=== PATIENT | female | born 1970 | race African-American/Black ===

== ENCOUNTER 2017-05-12 06:41 | Inpatient (IN) ==
[2017-05-12] MEDS ORDERED: ALUM/MAG/SIMETH/LIDO VISC 1:1 30 ML BOTTLE PO STA (07:01)
[2017-05-12] MEDS ORDERED: ALUM/MAG/SIMETH/LIDO VISC 1:1 30 ML BOTTLE PO ONE (07:06)
[2017-05-12 07:21] LABS: Basophils % 0.4 % (0.0-0.8); Eosinophils # 0.1 10*3/uL (0.0-0.87); Eosinophils % 1.1 % (0.00-10.9); Hematocrit 37.4 VOL% (35.7-47.0); Hemoglobin 12.5 GM/DL (12.0-16.0); Immature Granulocytes % 0.3 %; Immature Granulocytes Absolute 0.02 #; Lymphocytes # 2.5 10*3/uL (1.4-4.0); Lymphocytes % 34.4 % (21.3-54.2); Mean Corpuscular HGB Conc 33.4 GM/DL (32-36); Mean Corpuscular Hemoglobin 32 PG (27-34); Mean Corpuscular Volume 96.6 FL (87-102); Mean Platelet Volume 9.9 FL (9.6-12.0); Monocytes # 0.5 10*3/uL (0.11-0.8); Monocytes % 6.3 % (1.7-12.7); Neutrophils # 4.2 10*3/uL (1.4-7.4); Neutrophils % 57.5 % (38.7-73.9); Platelet Count 219 T/CUMM (130-400); Red Blood Count 3.87 MC/CUMM (3.8-5.5); Red Cell Distribution Width 14.2 % (9.3-17.3); White Blood Count 7.4 T/CUMM (4-12)
--- NOTE | 2017-05-12 07:39 | EKG Report ---
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
[2017-05-12 07:47] LABS: Albumin 3.4 G/DL (3.4-5.0); Bilirubin,Total 0.9 MG/DL (0.2-1.0); Calcium 8.8 MG/DL (8.5-10.1); Magnesium 1.9 MG/DL (1.8-2.4); Osmolality,Calculated 271.7 MOS/KG (273-304); Potassium 3.2 MMOL/L (3.5-5.1); Total Protein 7.8 G/DL (6.4-8.3)
--- NOTE | 2017-05-12 08:19 | XRay Report ---
XR chest 2V Indication: Chest pain Comparison: None Technique: Frontal and lateral views of the chest. Findings: Heart size within normal limits. No focal consolidation, pleural effusion, or pneumothorax. Moderate dextroconvex curvature of the thoracic spine. IMPRESSION: No acute cardiopulmonary process demonstrated. PROCEDURE INTERPRETED AT [facility] DEPARTMENT OF RADIOLOGY Final Report Signed by: Dr Dmitri Cha
[2017-05-12] MEDS ORDERED: ASPIRIN 325 MG TABLET PO STA (08:44)
[2017-05-12] MEDS ORDERED: ENOXAPARIN 100 MG/ML SYRINGE SUBCUT STA (08:44)
[2017-05-12] MEDS ORDERED: NITROGLYCERIN SL 0.4 MG TABLET SL PRN (08:44)
[2017-05-12] MEDS ORDERED: ENOXAPARIN 80 MG/0.8 ML SYRINGE SUBCUT ONE (08:53)
[2017-05-12] MEDS ORDERED: ASPIRIN 325 MG TABLET ONE (08:53)
--- NOTE | 2017-05-12 09:05 | Emergency Department Note ---
Chepe Rocha Brittany, am scribing for, and in the presence of, Elliott Farah MD 07:11. Sofi Rocha Phillip K, MD, personally performed the services described in this documentation, ascribed by Khushboo Mo in my presence, and it is both accurate and complete 905 . Arrival - Arrival Chief Complaint: Chest Pain Stated Complaint: chest hurting ED Nursing Triage Note: c/o chest pain "across" chest which started yesterday. pt states that pain does not radiate. denies nausea or sob. denies any past medical hx. pt reports that she is a smoker and drink vodka on a daily basis Mode of Arrival: Ambulatory Limitations: No Limitations Source: Patient, RN Notes Reviewed - History of Present Illness HPI Narrative: Patient is a 46 y/o black female presenting to the ED with c/o mid-sternal chest pain described as a tightness upon lying flat that began yesterday. Patient denies having any worsening of pain upon taking a deep breath or radiation of pain into the neck or arm. She has not had any SOB, nausea, vomiting, or diaphoresis with this. Patient states that a day prior to onset of chest pain she was jumping on a trampoline and believes this may have contributed. Patient was at rest when chest pain initially onset. She denies history of cardiac problems or GERD. Patient does have history of Hiatal Hernia. Does not take any daily home medications. Current everyday cigarette smoker and EtOH user. Patient has no other complaints. Patient's pain is improved with sitting up and leaning forward. Allergies/Adverse Reactions: Allergies Allergy/AdvReac Type Severity Reaction Status Date / Time No Known Allergies Allergy Unverified 05/12/17 06:48 Home Medications: Home Medications Medication Instructions Recorded Confirmed Type No Known Home Medications [No 05/12/17 05/12/17 History Known Home Medications] Review of System - Review of System 12 point system: reviewed and no additional remarkable complaints except as stated - Review of System Constitutional: Absent: diaphoresis Respiratory: Absent: respiratory distress Cardiovascular: Present: chest pain Gastrointestinal: Absent: nausea, vomiting Musculoskeletal: Absent: arm pain, neck pain Medical,Surgical,& Family Hx - Medical History Gastrointestinal: History of: GI Problems (Hiatal Hernia) - Surgical History Surgical History: noncontributory - Family History Family History: noncontributory - Social History Smoking Status: Current every day smoker Frequency of Alcohol Use: Frequently Type of Drug Use: None Exam Vital Signs: Vital Signs Temperature 97.1 F L 05/12/17 06:48 Pulse Rate 64 05/12/17 06:48 Respiratory Rate 18 05/12/17 07:31 Blood Pressure 133/87 05/12/17 06:48 O2 Sat by Pulse Oximetry 100 05/12/17 06:48 - General General appearance: alert, in no apparent distress - Head Head exam: Present: atraumatic, normocephalic, normal inspection - Eye Eye exam: Present: normal appearance, PERRL, EOMI - ENT ENT exam: Present: normal exam, normal oropharynx - Neck Neck exam: Present: normal inspection, full ROM, trachea midline - Chest Chest inspection: Present: normal inspection, symmetric chest wall rise - Respiratory Respiratory exam: Present: normal lung sounds bilaterally - Cardiovascular Cardiovascular exam: Present: regular rate, normal rhythm, normal heart sounds - Abdominal Exam Abdominal exam: Present: soft, normal bowel sounds. Absent: tenderness - Extremities Exam Extremities exam: Present: normal inspection - Back Exam Back exam: Present: normal inspection - Neurological Exam Neurological exam: Present: alert, oriented X3, CN II-XII intact. Absent: motor sensory deficit - Psychiatric Psychiatric exam: Present: normal affect, normal mood - Skin Skin exam: Present: warm, dry Course Course Narrative: Patient had no relief with a GI cocktail. Results - Labs CBC & BMP: 05/12/17 07:05 05/12/17 07:05 Lab Results: I have reviewed the patients labs Labs: Laboratory Tests 05/12/17 07:05 WBC 7.4 RBC 3.87 Hgb 12.5 Hct 37.4 Plt Count 219 Laboratory Tests 05/12/17 07:05 Sodium 138 Potassium 3.2 L Chloride 106 Carbon Dioxide 24 BUN 5 L Creatinine 0.90 BUN/Creatinine Ratio 5.00 L Glucose 94 Calculated Osmolality 271.7 L AST 14 ALT 12 L Globulin 4.4 H Albumin/Globulin Ratio 0.7 L Laboratory Tests 05/12/17 07:05 Troponin I 0.670 H - EKG EKG results: interpreted by ERMBernardino, sinus rhythm (Nonspecific ST-T changes) - Diagnostic Findings Procedure: Chest x-ray: report reviewed by me (No acute cardiopulmonary process demonstrated.) Disposition Clinical Impression: Chest pain, Possible unstable angina, Possible pericarditis, Tobacco abuse, Alcohol abuse Case discussed with: patient Disposition: Still a Patient Condition: Guarded Additional Instructions: Admit to the hospitalist.
--- NOTE | 2017-05-12 09:40 | Hospitalist History & Physical ---
Assessment and Plan (1) Chest pain Status: Acute Assessment and plan: Admit to telemetry. Cardiac monitoring. Serial cardiac enzymes and serial EKGs. Consult cardiology to evaluate. CBC/BMP in am. TSH. UA. Current Visit: Yes (2) Hypokalemia Status: Acute Assessment and plan: Potassium replacement. Recheck in am. Current Visit: Yes (3) Alcohol abuse Status: Acute Current Visit: Yes (4) Tobacco abuse Status: Acute Current Visit: Yes History of Present Illness Chief complaint: chest pain History of present illness: Ms. Otero is a 46 year old black female with a history of only a hiatal hernia that presents to the ED for further evaluation of chest pain. Pt. is accompanied by her significant other. Pt. states that the pain began yesterday morning before work and persisted throughout the day. She describes the pain as a pressure across the middle of her chest. She denies any radiation of pain into the jaw, neck, or arm area. Pt. also denies any shortness of breath, nausea , vomiting, fever, chills, diaphoresis or abdominal pain. Pt. states that the pain may be related to her jumping on a trampoline on Wednesday but is unsure. Pt. reports being a everyday smoker and drinker. She does not take any medications. She denies any other issues in the ED at this time. CXR was negative for any acute process but patient's troponin was 0.670. Pt. will be admitted to the hospitalist service overnight for observation. Home Medications Medication Instructions Recorded Confirmed Type No Known Home Medications [No 05/12/17 05/12/17 History Known Home Medications] Allergies Allergy/AdvReac Type Severity Reaction Status Date / Time No Known Allergies Allergy Unverified 05/12/17 06:48 Medical,Surgical,& Family Hx - Medical History Gastrointestinal: History of: GI Problems (Hiatal Hernia) - Social History Smoking Status: Current every day smoker Frequency of Alcohol Use: Frequently (every day) Type of Drug Use: None Lives With:: Significant Other Functional capacity: independent ambulation - Constitutional Constitutional: Absent: chills, fever(s), weakness - EENT Eyes: Absent: blurry vision, requires corrective lense Ears: Absent: decreased hearing Nose, mouth and throat: Absent: headache(s), hoarseness - Cardiovascular Cardiovascular: Present: chest pain at rest, chest pain with activity. Absent: dyspnea on exertion, edema, radiating jaw, neck or arm pain - Respiratory Respiratory: Absent: cough, dyspnea - Gastrointestinal Gastrointestinal: Absent: abdominal pain, nausea, vomiting - Genitourinary Genitourinary: Absent: difficulty urinating, hematuria, urinary frequency, urinary hesitancy - Musculoskeletal Musculoskeletal: Absent: back pain - Neurological Neurological: Absent: confusion, dizziness, headache(s) - Psychiatric Psychiatric: Absent: anxiety, depression Exam - Constitutional Vitals: Period Temp Pulse Resp BP Sys/Flores Pulse Ox Last 24 Hr 97.1 F-97.1 F 58-67 16-20 109-133/72-87 98-100 General appearance: no acute distress, over weight - Head Head exam: Present: normal inspection, normocephalic - Eye Eye exam: Present: EOMI. Absent: scleral icterus Pupils: Present: YANIRA - Neck Neck exam: Present: normal inspection - Respiratory Respiratory exam: Present: clear to auscultation bilaterally. Absent: wheezes - Cardiovascular Cardiovascular exam: Present: regular rate and rhythm - GI/Abdominal GI/Abdominal exam: Present: normal bowel sounds, soft. Absent: tenderness - Extremities Exam Extremities exam: Present: normal capillary refill, full ROM. Absent: edema - Neurological Exam Neurological exam: Present: alert, oriented X3 - Psychiatric Psychiatric exam: Present: normal affect, normal mood - Skin Skin exam: Present: normal color, warm, dry Results - Labs CBC & BMP: 05/12/17 07:05 05/12/17 07:05 Lab Results: I have reviewed the past 24 hour labs
[2017-05-12] MEDS ORDERED: ACETAMINOPHEN 325 MG TABLET PO PRN (10:04)
[2017-05-12] MEDS ORDERED: NICOTINE 21 MG/24 HR PATCH TRANSDERM PRN (10:04)
[2017-05-12] MEDS ORDERED: ONDANSETRON 4 MG/2 ML VIAL IV PRN (10:04)
[2017-05-12] MEDS: SODIUM CHLORIDE 0.9% 1,000 ML IV SCH (10:27)
[2017-05-12] MEDS: PANTOPRAZOLE 40 MG TABLET PO SCH (10:27)
[2017-05-12] MEDS: POTASSIUM CHLORIDE 20 MEQ TABLET PO PRN (10:37)
--- NOTE | 2017-05-12 11:16 | Cardiology Consult Note ---
Assessment and Plan - Time spent with patient Time spent with patient: Greater than 30 minutes (1) Atypical chest pain Status: Acute Assessment and plan: SEE PLAN OF CARE LISTED BELOW. Current Visit: Yes (2) Palpitations Status: Acute Assessment and plan: SEE PLAN OF CARE LISTED BELOW. Current Visit: Yes (3) Alcohol abuse Status: Chronic Assessment and plan: SEE PLAN OF CARE LISTED BELOW. Current Visit: Yes (4) Hypokalemia Status: Acute Assessment and plan: SEE PLAN OF CARE LISTED BELOW. Current Visit: Yes (5) Tobacco abuse Status: Chronic Assessment and plan: SEE PLAN OF CARE LISTED BELOW. Current Visit: Yes History of Present Illness - Data of Consult Patient: new to practice Consult date: 05/12/17 Requesting Physician: Hannah Eng - Consult Narrative Reason for consult: Chest pain, elevated troponin History of present illness: Title Assistant: Jack to cardiology, Dr. stack PCP: None Ms. Otero is a 46 year old female without known history of coronary artery disease, not routinely followed by cardiology. She has cardiac risk factors significant for current everyday smoker and obesity. She denies significant family history of coronary artery disease. She reports that she smokes close to 1 pack per day and drinks alcohol frequently. She does not take any home medications. Does not report any past medical history. She does not have a primary care provider. She has never been been worked up by cardiology. Patient reported to [place] [facility] early this morning with complaints of chest pain. She reports that her chest discomfort began yesterday morning while getting ready for work. She describes this pain as a pressure type pain located midsternally. This does not radiate. She is unable to identify any alleviating or aggravating factors. She reports that this lasted approximately 20 minutes. Was not associated with nausea, shortness of breath or diaphoresis. When she arrived at work, her chest pain was relieved. She was able to work all day without any problems. When she arrived back home she felt her chest discomfort return. She reports feeling her heart fluttering at times. Later that afternoon, her chest pain did worsen when she would lie flat. It would get better when she would lean forward. She tells me that she felt that her chest pain was related to gas. She burped several times, this did make her chest pain better. She went on to bed yesterday evening. When she awoke this morning and she reports that she continued to have mild chest discomfort. At that time, she felt that she needed to be further evaluated in the emergency department. Patient does report that she jumped on the trampoline at a friend's house earlier this week. She did not experience any chest pain, heaviness or tightness at that time. However, she feels that this has possibly caused her chest pain in some way.Upon arrival to the emergency department, she was given nitroglycerin which she reports did help her chest pain slightly. It did not completely resolve it. Patient has been admitted under hospital medicine's service and housed on the telemetry unit. Cardiology has been consulted to further evaluate her chest discomfort. Of note, patient reports that she is active. She can perform her daily activities without ever experiencing chest pain, heaviness and tightness. She denies exertional chest discomfort, dyspnea on exertion or change in her exercise tolerance. She also denies fever, chills, cough, abdominal pain, nausea, vomiting, melena, hematochezia, orthopnea, PND and lower extremity swelling. Patient was seen and examined on the telemetry unit. She is currently without complaints of chest pain, heaviness and tightness. Upon examination, her chest pain is not reproducible. Cardiac biomarkers are trivial, flat in nature. EKG is abnormal, suggestive for possible early repolarization. ESR is elevated. This could possibly be pericarditis. Echocardiogram has been ordered. Will order CRP. Patient's chest pain is atypical. I will ensure PPI is on board. I have discussed this case with Dr. Graham. At this point, we will continue to cycle cardiac biomarkers as well as EKGs. Order echocardiogram. If changes in EKG or significant rise in troponin can consider possible heart catheterization. Aspirin ordered. We will add PPI. Continue sublingual nitroglycerin as needed. Heart rate will not tolerate initiation of beta blockade. Lipid panel in the morning. Further recommendations to follow per Dr. Graham. ASSESSMENT/PLAN 1. ATYPICAL CHEST PAIN - Patient presents with atypical chest pain. Now chest pain-free. ESR elevated. This could possibly be pericarditis. Echocardiogram will be obtained. Will order CRP. Cardiac biomarkers trivial, flat in nature. EKG is abnormal, suggestive for possible early repolarization. I have discussed with Dr. Graham. At this point, we will continue to cycle cardiac biomarkers as well as EKGs. Order echocardiogram. If changes in EKG or significant rise in troponin can consider possible heart catheterization. Aspirin ordered. We will add PPI. Continue sublingual nitroglycerin as needed. Heart rate will not tolerate initiation of beta blockade. Lipid panel in the morning. Further recommendations to follow per Dr. Graham. 2. CURRENT EVERYDAY SMOKER - Smoking cessation encouraged. Patient reports that she is going to attempt to quit after being discharged. 3. ELEVATED ESR - Will order echocardiogram as patient could have pericarditis. Will order CRP. She is afebrile. Normal white cell count. 4. PALPITATIONS- Patient does report sensation of her heart fluttering yesterday afternoon. There could be possibly an underlying arrhythmia. Will monitor patient on the telemetry unit. Can consider 30 day event monitor at discharge. 5. HYPOKALEMIA - Will replace per protocol. Daily BMP. CC: Christiano Santos III - Home Medications and Allergies Home Medications: Home Medications Medication Instructions Recorded Confirmed Type No Known Home Medications [No 05/12/17 05/12/17 History Known Home Medications] Allergies/Adverse Reactions: Allergies Allergy/AdvReac Type Severity Reaction Status Date / Time No Known Allergies Allergy Unverified 05/12/17 06:48 - Constitutional Constitutional: Present: as per HPI. Absent: chills, fatigue, fever(s), frequent falls, night sweats, weakness, weight gain, weight loss - Cardiovascular Cardiovascular: Present: as per HPI, chest pain at rest, palpitations. Absent: chest pain with activity, claudication, diaphoresis, dyspnea, dyspnea on exertion, edema, radiating jaw, neck or arm pain, lightheadedness, orthopnea, PND - Respiratory Respiratory: Present: as per HPI. Absent: dyspnea, hemoptysis, dyspnea on exertion, wheezing, snoring, pain on inspiration, change in phlegm color - Gastrointestinal Gastrointestinal: Present: as per HPI. Absent: abdominal pain, change in bowel habits, coffee ground emesis, heartburn, hematemesis, hematochezia, loose stools , melena, nausea, vomiting - Neurological Neurological: Present: as per HPI. Absent: abnormal gait, abnormal speech, behavioral changes, dizziness, syncope Medical,Surgical,& Family Hx - Medical History Gastrointestinal: History of: GI Problems (Hiatal Hernia) - Family History Family History: Denies;: Family Heart Disease - Social History Smoking Status: Current every day smoker Frequency of Alcohol Use: Frequently Type of Drug Use: None Marital Status: Single Lives With:: Alone Functional capacity: independent ambulation Physical Examination Vital Signs Temp Pulse Resp BP Pulse Ox 97.1 F L 64 20 133/87 100 05/12/17 06:48 05/12/17 06:48 05/12/17 06:48 05/12/17 06:48 05/12/17 06:48 Exam: General: Appears well with no apparent distress. Pleasant and cooperative. Appears comfortable. HEENT: PERRL, normocephalic, atraumatic. Mucous membranes moist. No jaundice noted. Conjunctiva moist and clear, sclerae anicteric Neck: No JVD/HJR, no thyromegaly or lymphadenopathy noted. No carotid bruit appreciated Cardiac: Regular rate and rhythm. Lungs: Clear to auscultation without accessory muscle use to assist the respiratory pattern. Not requiring oxygen. Abdomen: Soft, bowel sounds normoactive. Nontender and nondistended. No abdominal bruit or thrill noted. No masses noted. Extremities: No clubbing, cyanosis noted. No edema noted. Upper extremity pulses 2+. Lower extremity pulses 2+. Capillary refill less than 3 seconds. Skin: No unusual lesions or rashes. No skin breakdown appreciated. Neuro: Awake, alert and oriented 3. Moves all extremities well without hemiparesis or paralysis. No essential tremor is appreciated. Result/EKG - Labs CBC & BMP: 05/12/17 07:05 05/12/17 07:05 Lab Results: I have reviewed the past 24 hour labs Labs: Laboratory Results - last 24 hr 05/12/17 05/12/17 05/12/17 07:05 07:05 07:05 WBC 7.4 RBC 3.87 Hgb 12.5 Hct 37.4 MCV 96.6 MCH 32 MCHC 33.4 RDW 14.2 Plt Count 219 MPV 9.9 Neut % (Auto) 57.5 Lymph % (Auto) 34.4 [place] % (Auto) 6.3 Eos % (Auto) 1.1 Baso % (Auto) 0.4 Neut # (Auto) 4.2 Lymph # (Auto) 2.5 [place] # (Auto) 0.5 Eos # (Auto) 0.1 Baso # (Auto) 0.0 Immature Gran % 0.3 Nucleated RBC % 0.0 Immature Gran # 0.02 Nucleated RBCs # 0.00 Immature Plt Fraction 0.0 ESR Westergren Sodium 138 Potassium 3.2 L Chloride 106 Carbon Dioxide 24 Anion Gap 11.2 BUN 5 L Creatinine 0.90 GFR Calculation 87 BUN/Creatinine Ratio 5.00 L Glucose 94 Calculated Osmolality 271.7 L Calcium 8.8 Magnesium 1.9 Total Bilirubin 0.90 AST 14 ALT 12 L Alkaline Phosphatase 83 Troponin I 0.670 H Total Protein 7.8 Albumin 3.4 Globulin 4.4 H Albumin/Globulin Ratio 0.7 L Lipase 240.0 05/12/17 05/12/17 07:05 10:17 WBC RBC Hgb Hct MCV MCH MCHC RDW Plt Count MPV Neut % (Auto) Lymph % (Auto) [place] % (Auto) Eos % (Auto) Baso % (Auto) Neut # (Auto) Lymph # (Auto) [place] # (Auto) Eos # (Auto) Baso # (Auto) Immature Gran % Nucleated RBC % Immature Gran # Nucleated RBCs # Immature Plt Fraction ESR Westergren 48 H Sodium Potassium Chloride Carbon Dioxide Anion Gap BUN Creatinine GFR Calculation BUN/Creatinine Ratio Glucose Calculated Osmolality Calcium Magnesium Total Bilirubin AST ALT Alkaline Phosphatase Troponin I 0.708 H Total Protein Albumin Globulin Albumin/Globulin Ratio Lipase
[2017-05-12] MEDS ORDERED: MAGNESIUM SULF RIDER 1 GM in PREMIX 1 EACH IV ONE ×2 (11:49→17:00)
--- NOTE | 2017-05-12 12:04 | EKG Report ---
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
[2017-05-12] MEDS ORDERED: ENOXAPARIN 40 MG/0.4 ML SYRINGE SUBCUT SCH (12:30)
[2017-05-12] MEDS: POTASSIUM CHLORIDE 20 MEQ TABLET PO SCH ×2 (12:32→16:10)
--- NOTE | 2017-05-12 14:18 | EKG Report ---
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
--- NOTE | 2017-05-12 21:49 | ECHO Report ---
Carmen Otero Exam Date: 05/12/2017 13:26 Referring Physician: Technologist: Regla Masters RDCS Age: 46 Ht (in): 61 Wt (lb): 164 Gender: F Exam Location: [facility] Echo Indications: Chest pain, unspecified, Elevated troponin, Palpitations, Nicotine dependence, cigarettes, uncomplicated BP: 118 / 63 HR: 64 Rhythm: Sinus Technical Quality: Good IMPRESSIONS Left ventricular ejection fraction is estimated at 60 %. The right atrium is mildly enlarged. The left atrium is mildly enlarged. Trace to mild tricuspid valve regurgitation. Tricuspid regurgitation velocities suggest a PAP of 37 mmHg. MEASUREMENTS (Male / Female) Normal Values 2D ECHO LV Diastolic Diameter PLAX 3.7 cm 4.2 - 5.9 / 3.9 - 5.3 cm LV Systolic Diameter PLAX 2.5 cm LV Fractional Shortening PLAX 34.2 % IVS Diastolic Thickness 0.9 cm 0.6 - 1.0 / 0.6 - 0.9 cm LVPW Diastolic Thickness 0.9 cm 0.6 - 1.0 / 0.6 - 0.9 cm RV Internal Dim ED PLAX 3.3 cm Aortic Root Diameter 2.2 cm LA Systolic Diameter LX 3.7 cm 3.0 - 4.0 / 2.7 - 3.8 cm DOPPLER TR Peak Velocity 258.0 cm/s TR Peak Gradient 26.6 mmHg FINDINGS Left Ventricle Normal left ventricular cavity size. Normal left ventricular wall thickness. Left ventricular ejection fraction is estimated at 60 %. Right Ventricle The right ventricle is normal in size and function. Right Atrium The right atrium is mildly enlarged. Left Atrium The left atrium is mildly enlarged. Mitral Valve Morphologically normal mitral valve without significant stenosis or prolapse. There is no mitral regurgitation. Aortic Valve Morphologically normal aortic valve without significant sclerosis or stenosis. There is no aortic regurgitation. Tricuspid Valve Morphologically normal tricuspid valve. Trace to mild tricuspid valve regurgitation. Tricuspid regurgitation velocities suggest a PAP of 37 mmHg. Pulmonic Valve Morphologically normal pulmonic valve. Mild pulmonary valve regurgitation. Pericardium Normal pericardium without effusion. Aorta Normal ascending aorta dimension. Cody Graham MD (Electronically Signed) Final Date: 12 May 2017 21:48
[2017-05-12] MEDS: SERTRALINE 25 MG TABLET PO SCH (21:57)
[2017-05-12] MEDS: GABAPENTIN 100 MG CAPSULE PO SCH ×2 (21:58)
[2017-05-12] MEDS: ACETAMINOPHEN 325 MG TABLET PO SCH ×2 (21:58)
[2017-05-12 23:26] LABS: Apearance,Urine Slightly Hazy (Clear); Bacteria,Urine Occasional /HPF (Few); Bilirubin,Urine Negative (Negative); Blood, Urine Negative (Negative); Glucose,Urine (UA) Negative (Negative); Ketones,Urine Negative (Negative); Mucus,Urine Occasional /LPF (Occasional); Nitrite,Urine Negative (Negative); Protein,Urine Negative; RBC,Urine 1 /HPF (0-4); Squamous Epithelial Cell,Urine Occasional /HPF (0-10); Urine Color Yellow (Yellow); Urine Specific Gravity 1.011 (1.001-1.035); Urine Urobilinogen < 2.0 EU/DL (0.2-1.0); WBC,Urine 2 /HPF (0-6)
[2017-05-13] MEDS: SODIUM CHLORIDE 0.9% 1,000 ML IV SCH ×3 (01:12→12:48)
[2017-05-13 05:28] LABS: Basophils % 0.4 % (0.0-0.8); Eosinophils # 0.1 10*3/uL (0.0-0.87); Eosinophils % 1.1 % (0.00-10.9); Hematocrit 33.8 VOL% (35.7-47.0); Hemoglobin 11.2 GM/DL (12.0-16.0); Immature Granulocytes % 0.4 %; Immature Granulocytes Absolute 0.03 #; Lymphocytes # 3.2 10*3/uL (1.4-4.0); Lymphocytes % 43.1 % (21.3-54.2); Mean Corpuscular HGB Conc 33.1 GM/DL (32-36); Mean Corpuscular Hemoglobin 33 PG (27-34); Mean Corpuscular Volume 98.3 FL (87-102); Mean Platelet Volume 9.9 FL (9.6-12.0); Monocytes # 0.5 10*3/uL (0.11-0.8); Monocytes % 6.2 % (1.7-12.7); Neutrophils # 3.6 10*3/uL (1.4-7.4); Neutrophils % 48.8 % (38.7-73.9); Platelet Count 201 T/CUMM (130-400); Red Blood Count 3.44 MC/CUMM (3.8-5.5); Red Cell Distribution Width 14.3 % (9.3-17.3); White Blood Count 7.3 T/CUMM (4-12)
[2017-05-13 06:00] LABS: Free T4 (Free Thyroxine) 0.93 NG/DL (0.76-1.46)
[2017-05-13 06:01] LABS: Troponin I Only 2.21 NG/ML (0.00-0.045)
[2017-05-13 06:05] LABS: Calcium 8.2 MG/DL (8.5-10.1); Magnesium 2.4 MG/DL (1.8-2.4); Osmolality,Calculated 274.4 MOS/KG (273-304); Potassium 4.3 MMOL/L (3.5-5.1)
[2017-05-13 06:18] LABS: Risk Ratio 2.75; Thyroid Stimulating Hormone 1.03 uIU/ml (0.358-3.74); VLDL CHOLESTEROL 12.6 MG/DL
--- NOTE | 2017-05-13 07:23 | EKG Report ---
Stationary ECG Study 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
--- NOTE | 2017-05-13 07:54 | Cardiology Progress Note ---
<Jewell Brito - Last Filed: 05/13/17 07:44> Assessment and Plan (1) Atypical chest pain Status: Acute Assessment and plan: SEE PLAN OF CARE LISTED BELOW. Current Visit: Yes (2) Palpitations Status: Acute Assessment and plan: SEE PLAN OF CARE LISTED BELOW. Current Visit: Yes (3) Alcohol abuse Status: Chronic Assessment and plan: SEE PLAN OF CARE LISTED BELOW. Current Visit: Yes (4) Hypokalemia Status: Acute Assessment and plan: SEE PLAN OF CARE LISTED BELOW. Current Visit: Yes (5) Tobacco abuse Status: Resolved Assessment and plan: SEE PLAN OF CARE LISTED BELOW. Current Visit: Yes Cardiology - PN: Subj Interval history: Microfiche Duplicator: New to cardiology, Dr. stack PCP: None Ms. Otero is a 46 year old female without known history of coronary artery disease, not routinely followed by cardiology. She has cardiac risk factors significant for current everyday smoker and obesity. She denies significant family history of coronary artery disease. She reports that she smokes close to 1 pack per day and drinks alcohol frequently. She does not take any home medications. Does not report any past medical history. She does not have a primary care provider. She has never been been worked up by cardiology. Patient reported to [facility] early this morning with complaints of chest pain. Admitted for rule out WA. Cardiology was consulted to further evaluate. Echocardiogram was performed yesterday evening and revealed normal systolic function, ejection fraction 60%. Trace to mild TR. Pulmonary artery pressure 37 mmHg. MAY 13, 2017 UPDATE Patient was seen and examined on the telemetry unit. She is doing well this morning and reports that she feels much better. She has had no further chest pain, heaviness or tightness. Denies shortness of breath. However, her troponin evette overnight to 2.21. EKG has changed as well, reveals T-wave inversions in inferior leads, suggesting inferior ischemia. Patient has been kept n.p.o. after midnight. At this point, I feel that patient should undergo heart catheterization in order to rule out underlying coronary artery disease. Risk and benefits of procedure have been reviewed with the patient and her significant other. They are agreeable to proceed. Cath will be scheduled for this morning per Dr. Malik. She denies any allergies. Lipid panel reviewed and is overall unremarkable. Vital signs are stable overnight. Labs been reviewed. I will further discuss with Dr. stack await his additional recommendations. ASSESSMENT/PLAN 1. ATYPICAL CHEST PAIN -patient is chest pain-free. However, overnight her troponin evette to 2.21. EKG this morning reveals T-wave inversions in inferior leads, suggesting inferior ischemia. Possible non-ST elevation WA. At this point, patient will need heart catheterization in order to define her coronary anatomy. Risk and benefits of heart catheterization have been reviewed with the patient and her significant other. They are agreeable to proceed with this this morning. Patient has been n.p.o. after midnight. Will further discuss with Dr. stack await his additional recommendations. 2. CURRENT EVERYDAY SMOKER - Smoking cessation encouraged. Patient reports that she is going to attempt to quit after being discharged. 3. ELEVATED ESR - No evidence of pericarditis per echocardiogram. Afebrile. No leukocytosis. 4. PALPITATIONS- No evidence of arrhythmia noted on sock drier. Can consider 30 day event monitor at discharge. 5. HYPOKALEMIA - Resolved. Daily BMP. Exam (Progress Note) - Constitutional Vitals: Period Temp Pulse Resp BP Sys/Flores Pulse Ox Last 24 Hr 97.8 F-98.6 F 54-93 16-18 109-133/63-84 98-100 Exam: General: Appears well with no apparent distress. Pleasant and cooperative. Appears comfortable. HEENT: PERRL, normocephalic, atraumatic. Mucous membranes moist. No jaundice noted. Conjunctiva moist and clear, sclerae anicteric Neck: No JVD/HJR, no thyromegaly or lymphadenopathy noted. No carotid bruit appreciated Cardiac: Regular rate and rhythm. Lungs: Clear to auscultation without accessory muscle use to assist the respiratory pattern. Not requiring oxygen. Abdomen: Soft, bowel sounds normoactive. Nontender and nondistended. No abdominal bruit or thrill noted. No masses noted. Extremities: No clubbing, cyanosis noted. No edema noted. Upper extremity pulses 2+. Lower extremity pulses 2+. Capillary refill less than 3 seconds. Skin: No unusual lesions or rashes. No skin breakdown appreciated. Neuro: Awake, alert and oriented 3. Moves all extremities well without hemiparesis or paralysis. No essential tremor is appreciated. Result/EKG - Labs CBC & BMP: 05/13/17 05:02 05/13/17 05:02 Lab Results: I have reviewed the past 24 hour labs Labs: Laboratory Results - last 24 hr 05/12/17 05/12/17 05/12/17 07:05 07:05 07:05 WBC RBC Hgb Hct MCV MCH MCHC RDW Plt Count MPV Neut % (Auto) Lymph % (Auto) [place] % (Auto) Eos % (Auto) Baso % (Auto) Neut # (Auto) Lymph # (Auto) [place] # (Auto) Eos # (Auto) Baso # (Auto) Immature Gran % Nucleated RBC % Immature Gran # Nucleated RBCs # Immature Plt Fraction ESR Westergren 48 H D-Dimer, Quantitative Sodium 138 Potassium 3.2 L Chloride 106 Carbon Dioxide 24 Anion Gap 11.2 BUN 5 L Creatinine 0.90 GFR Calculation 87 BUN/Creatinine Ratio 5.00 L Glucose 94 Hemoglobin A1c Calculated Osmolality 271.7 L Calcium 8.8 Magnesium 1.9 Total Bilirubin 0.90 AST 14 ALT 12 L Alkaline Phosphatase 83 Total Creatine Kinase CK-MB (CK-2) CK and CKMB Interp Troponin I 0.670 H C-Reactive Protein Total Protein 7.8 Albumin 3.4 Globulin 4.4 H Albumin/Globulin Ratio 0.7 L Triglycerides Cholesterol LDL Cholesterol VLDL Cholesterol HDL Cholesterol Heart Disease Risk Ratio Lipase 240.0 Free T4 TSH 3rd Generation Urine Color Urine Appearance Urine pH Ur Specific Welling Urine Protein Urine Glucose (UA) Urine Ketones Urine Blood Urine Nitrate Urine Bilirubin Urine Urobilinogen Urine Leukocytes Urine RBC Urine WBC Ur Squamous Epith Cells Urine Bacteria Urine Mucus Ur Culture Indicated? 05/12/17 05/12/17 05/12/17 07:05 10:17 11:53 WBC RBC Hgb Hct MCV MCH MCHC RDW Plt Count MPV Neut % (Auto) Lymph % (Auto) [place] % (Auto) Eos % (Auto) Baso % (Auto) Neut # (Auto) Lymph # (Auto) [place] # (Auto) Eos # (Auto) Baso # (Auto) Immature Gran % Nucleated RBC % Immature Gran # Nucleated RBCs # Immature Plt Fraction ESR Westergren D-Dimer, Quantitative Sodium Potassium Chloride Carbon Dioxide Anion Gap BUN Creatinine GFR Calculation BUN/Creatinine Ratio Glucose Hemoglobin A1c Calculated Osmolality Calcium Magnesium Total Bilirubin AST ALT Alkaline Phosphatase Total Creatine Kinase 152 CK-MB (CK-2) 2.9 CK and CKMB Interp Troponin I 0.708 H 1.220 H D C-Reactive Protein Total Protein Albumin Globulin Albumin/Globulin Ratio Triglycerides Cholesterol LDL Cholesterol VLDL Cholesterol HDL Cholesterol Heart Disease Risk Ratio Lipase Free T4 TSH 3rd Generation Urine Color Urine Appearance Urine pH Ur Specific Welling Urine Protein Urine Glucose (UA) Urine Ketones Urine Blood Urine Nitrate Urine Bilirubin Urine Urobilinogen Urine Leukocytes Urine RBC Urine WBC Ur Squamous Epith Cells Urine Bacteria Urine Mucus Ur Culture Indicated? 05/12/17 05/12/17 05/12/17 12:02 13:25 13:25 WBC RBC Hgb Hct MCV MCH MCHC RDW Plt Count MPV Neut % (Auto) Lymph % (Auto) [place] % (Auto) Eos % (Auto) Baso % (Auto) Neut # (Auto) Lymph # (Auto) [place] # (Auto) Eos # (Auto) Baso # (Auto) Immature Gran % Nucleated RBC % Immature Gran # Nucleated RBCs # Immature Plt Fraction ESR Westergren D-Dimer, Quantitative 0.7 Sodium Potassium Chloride Carbon Dioxide Anion Gap BUN Creatinine GFR Calculation BUN/Creatinine Ratio Glucose Hemoglobin A1c Calculated Osmolality Calcium Magnesium Total Bilirubin AST ALT Alkaline Phosphatase Total Creatine Kinase CK-MB (CK-2) CK and CKMB Interp Troponin I 2.130 H D C-Reactive Protein 0.47 H Total Protein Albumin Globulin Albumin/Globulin Ratio Triglycerides Cholesterol LDL Cholesterol VLDL Cholesterol HDL Cholesterol Heart Disease Risk Ratio Lipase Free T4 TSH 3rd Generation Urine Color Urine Appearance Urine pH Ur Specific [place] Urine Protein Urine Glucose (UA) Urine Ketones Urine Blood Urine Nitrate Urine Bilirubin Urine Urobilinogen Urine Leukocytes Urine RBC Urine WBC Ur Squamous Epith Cells Urine Bacteria Urine Mucus Ur Culture Indicated? 05/12/17 05/13/17 05/13/17 22:58 05:02 05:02 WBC 7.3 RBC 3.44 L Hgb 11.2 L Hct 33.8 L MCV 98.3 MCH 33 MCHC 33.1 RDW 14.3 Plt Count 201 MPV 9.9 Neut % (Auto) 48.8 Lymph % (Auto) 43.1 [place] % (Auto) 6.2 Eos % (Auto) 1.1 Baso % (Auto) 0.4 Neut # (Auto) 3.6 Lymph # (Auto) 3.2 [place] # (Auto) 0.5 Eos # (Auto) 0.1 Baso # (Auto) 0.0 Immature Gran % 0.4 Nucleated RBC % 0.0 Immature Gran # 0.03 Nucleated RBCs # 0.00 Immature Plt Fraction 0.0 ESR Westergren D-Dimer, Quantitative Sodium 140 Potassium 4.3 Chloride 112 H Carbon Dioxide 22 Anion Gap 10.3 BUN 4 L Creatinine 0.70 GFR Calculation 121 BUN/Creatinine Ratio 5.00 L Glucose 89 Hemoglobin A1c Calculated Osmolality 274.4 Calcium 8.2 L Magnesium 2.4 Total Bilirubin AST ALT Alkaline Phosphatase Total Creatine Kinase CK-MB (CK-2) CK and CKMB Interp Troponin I C-Reactive Protein Total Protein Albumin Globulin Albumin/Globulin Ratio Triglycerides Cholesterol LDL Cholesterol VLDL Cholesterol HDL Cholesterol Heart Disease Risk Ratio Lipase Free T4 TSH 3rd Generation Urine Color Yellow Urine Appearance Slightly hazy Urine pH 7.0 Ur Specific [place] 1.011 Urine Protein Negative Urine Glucose (UA) Negative Urine Ketones Negative Urine Blood Negative Urine Nitrate Negative Urine Bilirubin Negative Urine Urobilinogen < 2.0 H Urine Leukocytes Negative Urine RBC 1 Urine WBC 2 Ur Squamous Epith Cells Occasional Urine Bacteria Occasional Urine Mucus Occasional Ur Culture Indicated? Not indicated 05/13/17 05/13/17 05/13/17 05:02 05:02 05:02 WBC RBC Hgb Hct MCV MCH MCHC RDW Plt Count MPV Neut % (Auto) Lymph % (Auto) [place] % (Auto) Eos % (Auto) Baso % (Auto) Neut # (Auto) Lymph # (Auto) [place] # (Auto) Eos # (Auto) Baso # (Auto) Immature Gran % Nucleated RBC % Immature Gran # Nucleated RBCs # Immature Plt Fraction ESR Westergren D-Dimer, Quantitative Sodium Potassium Chloride Carbon Dioxide Anion Gap BUN Creatinine GFR Calculation BUN/Creatinine Ratio Glucose Hemoglobin A1c 5.3 Calculated Osmolality Calcium Magnesium Total Bilirubin AST ALT Alkaline Phosphatase Total Creatine Kinase 283 H D CK-MB (CK-2) 5.7 H CK and CKMB Interp 2.0 Troponin I 2.210 H C-Reactive Protein Total Protein Albumin Globulin Albumin/Globulin Ratio Triglycerides 63 Cholesterol 132 LDL Cholesterol 72.0 VLDL Cholesterol 12.6 HDL Cholesterol 48 Heart Disease Risk Ratio 2.75 Lipase Free T4 0.93 TSH 3rd Generation 1.030 Urine Color Urine Appearance Urine pH Ur Specific [place] Urine Protein Urine Glucose (UA) Urine Ketones Urine Blood Urine Nitrate Urine Bilirubin Urine Urobilinogen Urine Leukocytes Urine RBC Urine WBC Ur Squamous Epith Cells Urine Bacteria Urine Mucus Ur Culture Indicated? - EKG EKG results: interpreted by me, sinus rhythm (With T-wave inversions noted in inferior leads) <Cody Graham - Last Filed: 05/13/17 09:39> Assessment and Plan - Time spent with patient Time spent with patient: Greater than 30 minutes (1) Elevated troponin Status: Acute Current Visit: Yes (2) Abnormal EKG Status: Acute Current Visit: Yes (3) Chest pain in adult Status: Acute Current Visit: Yes (4) Smoker Status: Acute Current Visit: Yes (5) Alcohol abuse Status: Chronic Current Visit: Yes Exam (Progress Note) - Constitutional Vitals: Period Temp Pulse Resp BP Sys/Flores Pulse Ox Last 24 Hr 97.8 F-98.6 F 56-93 16-18 103-133/48-76 100-100 Result/EKG - Labs CBC & BMP: 05/13/17 05:02 05/13/17 05:02 Labs: Laboratory Results - last 24 hr 05/12/17 05/12/17 05/12/17 07:05 07:05 10:17 WBC RBC Hgb Hct MCV MCH MCHC RDW Plt Count MPV Neut % (Auto) Lymph % (Auto) [place] % (Auto) Eos % (Auto) Baso % (Auto) Neut # (Auto) Lymph # (Auto) [place] # (Auto) Eos # (Auto) Baso # (Auto) Immature Gran % Nucleated RBC % Immature Gran # Nucleated RBCs # Immature Plt Fraction ESR Westergren 48 H INR PT Patient/Control Mix D-Dimer, Quantitative Sodium Potassium Chloride Carbon Dioxide Anion Gap BUN Creatinine GFR Calculation BUN/Creatinine Ratio Glucose Hemoglobin A1c Calculated Osmolality Calcium Magnesium Total Creatine Kinase 152 CK-MB (CK-2) 2.9 CK and CKMB Interp Troponin I 0.708 H C-Reactive Protein Triglycerides Cholesterol LDL Cholesterol VLDL Cholesterol HDL Cholesterol Heart Disease Risk Ratio Free T4 TSH 3rd Generation Urine Color Urine Appearance Urine pH Ur Specific [place] Urine Protein Urine Glucose (UA) Urine Ketones Urine Blood Urine Nitrate Urine Bilirubin Urine Urobilinogen Urine Leukocytes Urine RBC Urine WBC Ur Squamous Epith Cells Urine Bacteria Urine Mucus Ur Culture Indicated? 05/12/17 05/12/17 05/12/17 11:53 12:02 13:25 WBC RBC Hgb Hct MCV MCH MCHC RDW Plt Count MPV Neut % (Auto) Lymph % (Auto) [place] % (Auto) Eos % (Auto) Baso % (Auto) Neut # (Auto) Lymph # (Auto) [place] # (Auto) Eos # (Auto) Baso # (Auto) Immature Gran % Nucleated RBC % Immature Gran # Nucleated RBCs # Immature Plt Fraction ESR Westergren INR PT Patient/Control Mix D-Dimer, Quantitative Sodium Potassium Chloride Carbon Dioxide Anion Gap BUN Creatinine GFR Calculation BUN/Creatinine Ratio Glucose Hemoglobin A1c Calculated Osmolality Calcium Magnesium Total Creatine Kinase CK-MB (CK-2) CK and CKMB Interp Troponin I 1.220 H D 2.130 H D C-Reactive Protein 0.47 H Triglycerides Cholesterol LDL Cholesterol VLDL Cholesterol HDL Cholesterol Heart Disease Risk Ratio Free T4 TSH 3rd Generation Urine Color Urine Appearance Urine pH Ur Specific [place] Urine Protein Urine Glucose (UA) Urine Ketones Urine Blood Urine Nitrate Urine Bilirubin Urine Urobilinogen Urine Leukocytes Urine RBC Urine WBC Ur Squamous Epith Cells Urine Bacteria Urine Mucus Ur Culture Indicated? 05/12/17 05/12/17 05/13/17 13:25 22:58 05:02 WBC RBC Hgb Hct MCV MCH MCHC RDW Plt Count MPV Neut % (Auto) Lymph % (Auto) [place] % (Auto) Eos % (Auto) Baso % (Auto) Neut # (Auto) Lymph # (Auto) [place] # (Auto) Eos # (Auto) Baso # (Auto) Immature Gran % Nucleated RBC % Immature Gran # Nucleated RBCs # Immature Plt Fraction ESR Westergren INR PT Patient/Control Mix D-Dimer, Quantitative 0.7 Sodium 140 Potassium 4.3 Chloride 112 H Carbon Dioxide 22 Anion Gap 10.3 BUN 4 L Creatinine 0.70 GFR Calculation 121 BUN/Creatinine Ratio 5.00 L Glucose 89 Hemoglobin A1c Calculated Osmolality 274.4 Calcium 8.2 L Magnesium 2.4 Total Creatine Kinase CK-MB (CK-2) CK and CKMB Interp Troponin I C-Reactive Protein Triglycerides Cholesterol LDL Cholesterol VLDL Cholesterol HDL Cholesterol Heart Disease Risk Ratio Free T4 TSH 3rd Generation Urine Color Yellow Urine Appearance Slightly hazy Urine pH 7.0 Ur Specific [place] 1.011 Urine Protein Negative Urine Glucose (UA) Negative Urine Ketones Negative Urine Blood Negative Urine Nitrate Negative Urine Bilirubin Negative Urine Urobilinogen < 2.0 H Urine Leukocytes Negative Urine RBC 1 Urine WBC 2 Ur Squamous Epith Cells Occasional Urine Bacteria Occasional Urine Mucus Occasional Ur Culture Indicated? Not indicated 05/13/17 05/13/17 05/13/17 05:02 05:02 05:02 WBC 7.3 RBC 3.44 L Hgb 11.2 L Hct 33.8 L MCV 98.3 MCH 33 MCHC 33.1 RDW 14.3 Plt Count 201 MPV 9.9 Neut % (Auto) 48.8 Lymph % (Auto) 43.1 [place] % (Auto) 6.2 Eos % (Auto) 1.1 Baso % (Auto) 0.4 Neut # (Auto) 3.6 Lymph # (Auto) 3.2 [place] # (Auto) 0.5 Eos # (Auto) 0.1 Baso # (Auto) 0.0 Immature Gran % 0.4 Nucleated RBC % 0.0 Immature Gran # 0.03 Nucleated RBCs # 0.00 Immature Plt Fraction 0.0 ESR Westergren INR PT Patient/Control Mix D-Dimer, Quantitative Sodium Potassium Chloride Carbon Dioxide Anion Gap BUN Creatinine GFR Calculation BUN/Creatinine Ratio Glucose Hemoglobin A1c Calculated Osmolality Calcium Magnesium Total Creatine Kinase 283 H D CK-MB (CK-2) 5.7 H CK and CKMB Interp 2.0 Troponin I 2.210 H C-Reactive Protein Triglycerides 63 Cholesterol 132 LDL Cholesterol 72.0 VLDL Cholesterol 12.6 HDL Cholesterol 48 Heart Disease Risk Ratio 2.75 Free T4 0.93 TSH 3rd Generation 1.030 Urine Color Urine Appearance Urine pH Ur Specific [place] Urine Protein Urine Glucose (UA) Urine Ketones Urine Blood Urine Nitrate Urine Bilirubin Urine Urobilinogen Urine Leukocytes Urine RBC Urine WBC Ur Squamous Epith Cells Urine Bacteria Urine Mucus Ur Culture Indicated? 05/13/17 05/13/17 05:02 08:58 WBC RBC Hgb Hct MCV MCH MCHC RDW Plt Count MPV Neut % (Auto) Lymph % (Auto) [place] % (Auto) Eos % (Auto) Baso % (Auto) Neut # (Auto) Lymph # (Auto) [place] # (Auto) Eos # (Auto) Baso # (Auto) Immature Gran % Nucleated RBC % Immature Gran # Nucleated RBCs # Immature Plt Fraction ESR Westergren INR 1.0 PT Patient/Control Mix 10.3 D-Dimer, Quantitative Sodium Potassium Chloride Carbon Dioxide Anion Gap BUN Creatinine GFR Calculation BUN/Creatinine Ratio Glucose Hemoglobin A1c 5.3 Calculated Osmolality Calcium Magnesium Total Creatine Kinase CK-MB (CK-2) CK and CKMB Interp Troponin I C-Reactive Protein Triglycerides Cholesterol LDL Cholesterol VLDL Cholesterol HDL Cholesterol Heart Disease Risk Ratio Free T4 TSH 3rd Generation Urine Color Urine Appearance Urine pH Ur Specific [place] Urine Protein Urine Glucose (UA) Urine Ketones Urine Blood Urine Nitrate Urine Bilirubin Urine Urobilinogen Urine Leukocytes Urine RBC Urine WBC Ur Squamous Epith Cells Urine Bacteria Urine Mucus Ur Culture Indicated?
[2017-05-13] MEDS ORDERED: ASPIRIN CHEW 81 MG TABLET PO ONE (08:15)
[2017-05-13] MEDS ORDERED: MAGNESIUM SULF RIDER 2 GM in PREMIX 1 EACH IV PRN (08:27)
[2017-05-13] MEDS ORDERED: POTASSIUM CHLORIDE RIDER 10 MEQ in PREMIX 1 EACH IV PRN (08:27)
[2017-05-13] MEDS ORDERED: DIAZEPAM 5 MG TABLET PO ONE (08:27)
[2017-05-13] MEDS ORDERED: diphenhydrAMINE CAP 25 MG CAPSULE PO ONE (08:27)
[2017-05-13] MEDS ORDERED: SODIUM CHLORIDE 0.45% 1,000 ML IV SCH (08:30)
[2017-05-13] MEDS ORDERED: ASPIRIN EC 81 MG TABLET PO SCH (09:00)
[2017-05-13] MEDS: GABAPENTIN 100 MG CAPSULE PO SCH ×3 (09:02→21:23)
[2017-05-13] MEDS: ACETAMINOPHEN 325 MG TABLET PO SCH ×2 (09:03→21:23)
[2017-05-13] MEDS: PANTOPRAZOLE 40 MG TABLET PO SCH (09:03)
[2017-05-13] MEDS: POTASSIUM CHLORIDE 20 MEQ TABLET PO PRN (09:08)
[2017-05-13] MEDS ORDERED: MIDAZOLAM 2 MG/2 ML VIAL ONE (09:18)
[2017-05-13] MEDS ORDERED: HYDROmorphone 2 MG/1 ML VIAL ONE (09:18)
[2017-05-13 09:20] LABS: PT Patient Result 10.3 SECS
[2017-05-13] MEDS ORDERED: LIDOCAINE 1% 20 ML VIAL ONE (09:20)
[2017-05-13] MEDS ORDERED: ENOXAPARIN 60 MG/0.6 ML SYRINGE ONE (09:39)
[2017-05-13] MEDS ORDERED: TICAGRELOR 90 MG TABLET ONE (09:49)
[2017-05-13] MEDS ORDERED: ZALEPLON 5 MG CAPSULE PO PRN (09:57)
[2017-05-13] MEDS ORDERED: ACETAMINOPHEN/CODEINE 300-30 MG TABLET PO PRN (09:57)
--- NOTE | 2017-05-13 10:07 | Cardiac Catheterization ---
Date of Procedure:: 05/13/17 Post-op diagnosis: same Procedure: Procedure performed: 1. Left heart catheterization 2. Coronary angiography 3. Left ventriculography 4. Primary stenting of significant mid RCA disease with drug-eluting stent ( 3.0 x 16 synergy) 5. Right femoral arteriotomy closure with Angio-Seal device Brief clinical summary: Ms. Otero is a 46-year-old smoker status post non- STEMI with abnormal EKG. Description of procedure: After obtaining informed consent, the right groin was prepped and draped in the usual sterile fashion. Next a short 6 Urdu sheath was placed in the right femoral artery using a modified Seldinger technique, after the patient received IV sedation and local anesthetic. Next a JL4 catheter was advanced over a guidewire under fluoroscopic guidance, and was engaged to the left coronary artery after which angiography was performed in multiple views. This was then removed over a wire, and a JR4 catheter was advanced in similar fashion, and was engaged to the right coronary artery after which angiography was performed in multiple views. Next a bent pigtail catheter was advanced into the left ventricle, where hemodynamic measurements were obtained, and left ventriculography was performed. After this percutaneous coronary mention was performed as described below. After this, an angiogram of the sheath showed that it was inserted in the right common femoral artery in a vessel suitable for closure. Hemostasis was obtained with Angio- Seal device with no residual bleeding. 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 Percutaneous coronary mention: The patient arrived to the [facility] on aspirin and was given 0.7 mg/kg of IV Lovenox prior to procedure. Medially after the procedure she was given a loading dose of Brilinta 180 mg on the table. A hockey-stick to guiding catheter was advanced and engaged the right coronary artery which provided good support. There was modest "damping" of the blood pressure which required some adjustment in re-engagement of the vessel. I advanced a pro-water wire to distal RCA with only modest difficulty. Next a 3.0 x 16 Synergy stent was advanced crosshair of mid disease was deployed at nominal pressures. I did not deflate the balloon and the angiogram showed the stent was slightly undersized. Therefore read dilated to 3.15 mm with an excellent angiographic result. The balloon catheter wire were then removed from the body. Coronary angiography: Left main coronary was normal developed and free of disease. Left anterior CRE is of average caliber reaches the apex. It is somewhat tortuous in the mid to distal portion and is hyperdynamic but there is no stenosis of the vessel. The LAD gives off to thin diagonal branches. The circumflex gives off a high thinner than average OM1 and a large OM 2 branch as well as a thin OM 3 branch. There is a most mild irregularities. The right coronary is a dominant vessel is of average caliber. Gives off an average caliber PDA and there is a discrete 70% mid LAD stenosis which is almost certainly her culprit unstable plaque. Left ventriculography: Left ventricle is normal size with normal LV systolic function. There are no wall motion analysis. The estimated ejection fraction 60%. Impression: 1. Normal LV systolic function with ejection fraction is will be 60% without segmental wall motion normality 2. Right dominant system 3. Single-vessel coronary disease with 70% eccentric mid RCA stenosis (culprit lesion) 4. Status post primary stenting of mid RCA disease with drug-eluting stent ( 3.0 x 16 Synergy dilated to 3.5 mm) with excellent result 5. Mild hypotension which responded to normal saline bolus during the procedure Recommendation discussion: I believe we achieved very good result cart distending this easily's culprit vessel. Her staying away from cigarettes will be very important for her prognosis. She will need to continue baby aspirin and Brilinta. She will need to avoid squatting strain lifting for the next 1 week's time. Anesthesia: minimal conscious sedation Surgeon / Physician: Tal Malik Time Checker: other Estimated blood loss: minimal Specimens: none sent Condition: stable Disposition: floor - Medications / Follow-up
--- NOTE | 2017-05-13 16:04 | Hospitalist Progress Note ---
Assessment and Plan (1) Coronary artery disease Status: Acute Assessment and plan: 05/13/2017: Patient experienced a small non-ST elevation acute myocardial infarction. Culprit lesion stented this morning (ROD) mid RCA. Current Visit: Yes (2) Tobacco use Status: Chronic Assessment and plan: 05/13/2017: Continue to student counsellor and encourage patient to discontinue cigarette smoking Current Visit: Yes (3) Alcohol use Status: Chronic Assessment and plan: 05/13/2017: Patient denies alcoholism. She denies previous acute alcohol withdrawal. Add thiamine and multivitamin supplements. Monitor for acute withdrawal symptoms. Current Visit: Yes (4) Hiatal hernia Status: Chronic Assessment and plan: 05/13/2017: Add antireflux behavior modifications. Continue PPI stress gastritis pharmacologic therapy. Current Visit: Yes Hospitalist: Subjective Interval history: 05/13/2017: Patient is a 46-year-old black female interviewed and examined after left heart catheterization earlier today. Her was at bedside at the time of my interview and exam. Patient denies any specific or acute complaints. I reviewed patient's current status, left heart catheterization report, and planned treatment. Exam - Constitutional Vitals: Period Temp Pulse Resp BP Sys/Flores Pulse Ox Last 24 Hr 97.2 F-98.6 F 57-93 16-18 81-133/48-76 94-100 General appearance: over weight - Head Head exam: Present: normal inspection - ENT ENT exam: Present: normal exam - Neck Neck exam: Absent: meningismus, tenderness - Respiratory Respiratory exam: Present: clear to auscultation bilaterally. Absent: rhonchi, wheezes - Cardiovascular Cardiovascular exam: Present: regular rate and rhythm - GI/Abdominal GI/Abdominal exam: Present: normal bowel sounds, soft. Absent: rebound - Extremities Exam Extremities exam: Present: normal inspection, other (Both feet are warm and well perfused). Absent: calf tenderness, edema - Neurological Exam Neurological exam: Present: other (Somnolent) - Psychiatric Psychiatric exam: Present: normal affect - Skin Skin exam: Present: normal color, warm. Absent: rash Results - Labs CBC & BMP: 05/13/17 05:02 05/13/17 05:02 Specialty Discharge - Follow Up or Referrals
[2017-05-13] MEDS: TICAGRELOR 90 MG TABLET PO SCH (21:22)
[2017-05-13] MEDS: SERTRALINE 25 MG TABLET PO SCH (21:23)
[2017-05-14 05:55] LABS: Basophils % 0.4 % (0.0-0.8); Eosinophils # 0.1 10*3/uL (0.0-0.87); Eosinophils % 0.9 % (0.00-10.9); Hematocrit 33.3 VOL% (35.7-47.0); Hemoglobin 11.1 GM/DL (12.0-16.0); Immature Granulocytes % 0.4 %; Immature Granulocytes Absolute 0.03 #; Lymphocytes # 2.7 10*3/uL (1.4-4.0); Lymphocytes % 36.7 % (21.3-54.2); Mean Corpuscular HGB Conc 33.3 GM/DL (32-36); Mean Corpuscular Hemoglobin 32 PG (27-34); Mean Corpuscular Volume 97.1 FL (87-102); Mean Platelet Volume 10.5 FL (9.6-12.0); Monocytes # 0.4 10*3/uL (0.11-0.8); Monocytes % 5.9 % (1.7-12.7); Neutrophils # 4.1 10*3/uL (1.4-7.4); Neutrophils % 55.7 % (38.7-73.9); Platelet Count 201 T/CUMM (130-400); Red Blood Count 3.43 MC/CUMM (3.8-5.5); Red Cell Distribution Width 14.4 % (9.3-17.3); White Blood Count 7.4 T/CUMM (4-12)
[2017-05-14 06:23] LABS: Calcium 8.3 MG/DL (8.5-10.1); Osmolality,Calculated 272.5 MOS/KG (273-304)
[2017-05-14 06:37] LABS: Calcium 8.4 MG/DL (8.5-10.1); Magnesium 2.1 MG/DL (1.8-2.4); Osmolality,Calculated 270.7 MOS/KG (273-304)
--- NOTE | 2017-05-14 07:26 | EKG Report ---
Stationary ECG Study [facility] Test Date: 05/14/2017 7:24:58 AM Pat Name: BEKA VANEGAS Department: Room: 278 Gender: F [employer] F[employer]: : 1970 Requested by: Jewell Brito Order Number: [id number] Reading MD: ANTHONY BARKSDALE Intervals [place] Rate: 71 P: 87 MI: 145 QRS: 84 QRSD: 94 T: 1 QT: 411 QTc: 433 Interpretive Statements SINUS RHYTHM WITH SINUS ARRHYTHMIA NONSPECIFIC T-WAVE ABNORMALITY Electronically Signed On 05-14-17 13:08:41 CDT by ANTHONY BARKSDALE [email or web address]
--- NOTE | 2017-05-14 08:05 | Cardiology Progress Note ---
Addendum entered and electronically signed by Jewell Brito NP 05/14/17 09:35 : Patient did have elevated ESR and CRP this hospitalization. This could suggest possible underlying inflammatory disease. Patient will need further workup of this. I will defer further management/workup of this to attending. Original Note: Assessment and Plan (1) Atypical chest pain Status: Resolved Assessment and plan: SEE PLAN OF CARE LISTED BELOW. Current Visit: Yes (2) Palpitations Status: Resolved Assessment and plan: SEE PLAN OF CARE LISTED BELOW. Current Visit: Yes (3) Alcohol abuse Status: Chronic Assessment and plan: SEE PLAN OF CARE LISTED BELOW. Current Visit: Yes (4) Hypokalemia Status: Resolved Assessment and plan: SEE PLAN OF CARE LISTED BELOW. Current Visit: Yes (5) Tobacco abuse Status: Chronic Assessment and plan: SEE PLAN OF CARE LISTED BELOW. Current Visit: Yes (6) Coronary artery disease Status: Acute Assessment and plan: SEE PLAN OF CARE LISTED BELOW. Current Visit: Yes (7) Status post coronary artery stent placement Status: Acute Assessment and plan: SEE PLAN OF CARE LISTED BELOW. Current Visit: Yes Cardiology - PN: Subj Interval history: Service Order Clerk: New to cardiology, Dr. stack PCP: None Ms. Otero is a 46 year old female without known history of coronary artery disease, not routinely followed by cardiology. She has cardiac risk factors significant for current everyday smoker and obesity. She denies significant family history of coronary artery disease. She reports that she smokes close to 1 pack per day and drinks alcohol frequently. She does not take any home medications. Does not report any past medical history. She does not have a primary care provider. She has never been been worked up by cardiology. Patient reported to [facility] early this morning with complaints of chest pain. Admitted for rule out OR. Cardiology was consulted to further evaluate. Echocardiogram was performed yesterday evening and revealed normal systolic function, ejection fraction 60%. Trace to mild TR. Pulmonary artery pressure 37 mmHg. Lipid panel obtained this hospitalization. LDL stable at 72. Cholesterol 132 MAY 14, 2017 UPDATE Post heart catheterization patient was transported back to the telemetry unit in stable condition. She has done well overnight has been without complications. Right groin is soft without bleeding, hematoma and bruit. Distal pulses 2+. Patient has ambulated around the room and down the [place] without difficulty. Right groin has remained stable post ambulation. Right groin precautions have been reviewed with the patient. She verbalizes understanding. I have discussed the importance of absolute compliance with dual antiplatelet therapy. She has verbalized understanding. She will be discharged home on both Brilinta and aspirin. Brilinta card given at discharge. She has been without complaint of chest pain, heaviness and tightness. Labs have been reviewed. Creatinine is stable post catheterization. Vital signs are stable. Borderline hypotension noted throughout the night with systolic blood pressure in the 90s. This morning systolic blood pressure in the low 100s. This is patient's baseline. Unfortunately, we are unable to initiate beta-blockade and NORMAN inhibitor because of this. Hopefully, this can be challenged as an outpatient. Patient is doing well from a cardiac standpoint and can be discharged home today with a follow-up appointment with Dr. Graham in 2 weeks with EKG and CBC. I will further discuss with Dr. stack await his additional recommendations. ASSESSMENT/PLAN 1. CORONARY ARTERY DISEASE, STATUS POST PCI TO RCA- Patient underwent heart catheterization yesterday and received PCI to RCA. She has done well and is now on dual antiplatelet therapy. She is stable for discharge home from a cardiac standpoint. She will need follow-up appointment with Dr. Graham in 2 weeks with CBC and EKG. Her echocardiogram she has normal LV systolic function. Recommend the following cardiac discharge medications: Brilinta, aspirin, Lipitor and sublingual nitroglycerin as needed chest pain. Unfortunately, her blood pressure will not allow initiation of NORMAN inhibitor or beta-blockade. Hopefully patient can be challenged with these medications as an outpatient. 2. CURRENT EVERYDAY SMOKER - Smoking cessation encouraged. Patient reports that she is going to attempt to quit after being discharged. 3. HYPOKALEMIA - Resolved. Daily BMP. Recommend the following cardiac discharge medications: Brilinta 90 mg twice daily Aspirin 81 mg daily Lipitor 40 mg daily Nitroglycerin sublingual as needed chest pain Exam (Progress Note) - Constitutional Vitals: Period Temp Pulse Resp BP Sys/Flores Pulse Ox Last 24 Hr 97.2 F-98.9 F 57-80 16-20 81-112/48-75 94-100 Exam: General: Appears well with no apparent distress. Pleasant and cooperative. Appears comfortable. HEENT: PERRL, normocephalic, atraumatic. Mucous membranes moist. No jaundice noted. Conjunctiva moist and clear, sclerae anicteric Neck: No JVD/HJR, no thyromegaly or lymphadenopathy noted. No carotid bruit appreciated Cardiac: Regular rate and rhythm. Lungs: Clear to auscultation without accessory muscle use to assist the respiratory pattern. Not requiring oxygen. Abdomen: Soft, bowel sounds normoactive. Nontender and nondistended. No abdominal bruit or thrill noted. No masses noted. Extremities: No clubbing, cyanosis noted. No edema noted. Upper extremity pulses 2+. Lower extremity pulses 2+. Capillary refill less than 3 seconds. Right groin soft without bleeding, hematoma and bruit. Distal pulses 2+. Skin: No unusual lesions or rashes. No skin breakdown appreciated. Neuro: Awake, alert and oriented 3. Moves all extremities well without hemiparesis or paralysis. No essential tremor is appreciated. Result/EKG - Labs CBC & BMP: 05/14/17 04:44 05/14/17 04:44 Lab Results: I have reviewed the past 24 hour labs Labs: Laboratory Results - last 24 hr 05/13/17 05/14/17 05/14/17 08:58 04:44 04:44 WBC 7.4 RBC 3.43 L Hgb 11.1 L Hct 33.3 L MCV 97.1 MCH 32 MCHC 33.3 RDW 14.4 Plt Count 201 MPV 10.5 Neut % (Auto) 55.7 Lymph % (Auto) 36.7 [place] % (Auto) 5.9 Eos % (Auto) 0.9 Baso % (Auto) 0.4 Neut # (Auto) 4.1 Lymph # (Auto) 2.7 [place] # (Auto) 0.4 Eos # (Auto) 0.1 Baso # (Auto) 0.0 Immature Gran % 0.4 Nucleated RBC % 0.0 Immature Gran # 0.03 Nucleated RBCs # 0.00 Immature Plt Fraction 0.0 INR 1.0 PT Patient/Control Mix 10.3 Sodium 138 Potassium 4.0 Chloride 108 H Carbon Dioxide 21 Anion Gap 13.0 BUN 4 L Creatinine 0.70 GFR Calculation 120 BUN/Creatinine Ratio 5.00 L Glucose 76 Calculated Osmolality 270.7 L Calcium 8.4 L Magnesium 2.1 05/14/17 04:44 WBC RBC Hgb Hct MCV MCH MCHC RDW Plt Count MPV Neut % (Auto) Lymph % (Auto) [place] % (Auto) Eos % (Auto) Baso % (Auto) Neut # (Auto) Lymph # (Auto) [place] # (Auto) Eos # (Auto) Baso # (Auto) Immature Gran % Nucleated RBC % Immature Gran # Nucleated RBCs # Immature Plt Fraction INR PT Patient/Control Mix Sodium 139 Potassium 4.0 Chloride 109 H Carbon Dioxide 22 Anion Gap 12.0 BUN 4 L Creatinine 0.70 GFR Calculation 120 BUN/Creatinine Ratio 5.00 L Glucose 76 Calculated Osmolality 272.5 L Calcium 8.3 L Magnesium Specialty Discharge - Follow Up or Referrals Follow up with: Cody Graham MD [Physician] - 2 Weeks (With CBC and EKG)
[2017-05-14] MEDS: ACETAMINOPHEN 325 MG TABLET PO SCH (08:32)
[2017-05-14] MEDS: GABAPENTIN 100 MG CAPSULE PO SCH (08:32)
[2017-05-14] MEDS: PANTOPRAZOLE 40 MG TABLET PO SCH (08:33)
[2017-05-14] MEDS: TICAGRELOR 90 MG TABLET PO SCH (08:33)
[2017-05-14] MEDS ORDERED: ASPIRIN EC 81 MG TABLET PO SCH (09:00)
[2017-05-14] MEDS ORDERED: THIAMINE 100 MG TABLET PO SCH (09:00)
[2017-05-14] MEDS ORDERED: MULTIVITAMIN (CENTRUM) TABLET PO SCH (09:00)
[2017-05-14 11:41] VITALS: BP 116/62
--- NOTE | 2017-05-14 13:02 | Discharge Summary ---
Hospital Course - Hospital Course Hospital Course: 05/14/2017: Patient is a 46-year-old black female admitted for evaluation of chest pain. She developed acute T-wave inversion on EKG and her serum troponin level increased from 1.22-2.21. This clinical setting possibly represents acute non- ST elevation myocardial infarction. Left heart catheterization reported 70% eccentric mid RCA stenosis thought to represent culprit lesion. Patient completed primary stent within mid RCA drug-eluting device. Patient is encouraged to discontinue alcohol consumption and cigarette smoking. Patient is without chest pain. She is able to ambulate outside her hospital room without assistance. She is tolerating regular food diet without abdominal pain nausea vomiting or diarrhea. Patient is eager for discharge home today. No noted complications related to right femoral artery puncture site. - Time spent with patient Time with patient DS: Greater than 30 minutes Diagnosis - Discharge Diagnosis (1) Coronary artery disease Status: Acute (2) Tobacco use Status: Chronic (3) Alcohol use Status: Chronic (4) Hiatal hernia Status: Chronic Specialty Discharge - Follow Up or Referrals Follow up with: Cody Graham MD [Physician] - 2 Weeks (With CBC and EKG lab;05/27 at 1pm30 ;05/27/17 at 2pm) Discharge Plan - Discharge Data Disposition: Disch To Home/Self Care Condition at Discharge: Stable Discharge Diet: low fat, low cholesterol Activity: other (No heavy lifting or bending at the hip for at least the next 1 week) Hygiene: no restrictions Weight Bearing at Discharge: full weight bearing Contact your physician if you experience:: fever over 101, Redness or swelling, Bleeding - Discharge Medications New Aspirin EC Tab 81 mg PO DAILY #30 tablet Atorvastatin [Lipitor] 40 mg PO BEDTIME #30 tablet Gabapentin Cap/Tab [Neurontin Cap/Tab] 100 mg PO TID #90 capsule Multivitamin (Centrum) [Centrum Tab] 1 tablet PO DAILY #30 tablet Nicotine 21 mg/24 Hr Patch [Nicoderm CQ 21 mg/24 hr Patch] 1 patch TRANSDERM DAILY PRN #30 patch PRN Reason: Nicotine Cravings Ticagrelor [Brilinta] 90 mg PO BID #60 tablet Nitroglycerin Sl Tab [Nitrostat] 0.4 mg SL Q5M PRN #30 tablet PRN Reason: Chest Pain - Follow Up or Referral Follow Up: Cody Graham MD [Physician] - 2 Weeks (With CBC and EKG lab;05/27 at 1pm30 ;05/27/17 at 2pm) - Forms/Instructions Instructions: Coronary Artery Disease (GEN), Left Heart Catheterization (DC), How to Stop Smoking (GEN), Heart Healthy Diet (GEN), Coronary Intravascular Stent Placement (DC), Cigarette Smoking and Your Health, Rn Diabetes (GEN) Additional Discharge Instructions: Patient encouraged to discontinue cigarette smoking and avoid alcohol consumption. Exam - Constitutional Vitals: Period Temp Pulse Resp BP Sys/Flores Pulse Ox Last 24 Hr 98.0 F-99.1 F 65-80 16-20 90-116/52-75 95-99 General appearance: normal weight - Head Head exam: Present: normal inspection - Eye Eye exam: Present: EOMI - ENT ENT exam: Present: normal exam - Neck Neck exam: Absent: meningismus, tenderness - Respiratory Respiratory exam: Present: clear to auscultation bilaterally. Absent: rales, wheezes - Cardiovascular Cardiovascular exam: Present: regular rate and rhythm - GI/Abdominal GI/Abdominal exam: Present: normal bowel sounds, soft. Absent: tenderness, rebound - Extremities Exam Extremities exam: Absent: calf tenderness, edema - Back Exam Back exam: Absent: CVA tenderness (L), CVA tenderness (R) - Neurological Exam Neurological exam: Present: alert, oriented X3 - Psychiatric Psychiatric exam: Present: normal affect, other (Previous major depression related to loss of her last year) - Skin Skin exam: Present: normal color. Absent: rash Discharge Results Procedures and tests throughout hospitalization: Procedure performed: 1. Left heart catheterization 2. Coronary angiography 3. Left ventriculography 4. Primary stenting of significant mid RCA disease with drug-eluting stent ( 3.0 x 16 synergy) 5. Right femoral arteriotomy closure with Angio-Seal device Brief clinical summary: Ms. Otero is a 46-year-old smoker status post non- STEMI with abnormal EKG. Description of procedure: After obtaining informed consent, the right groin was prepped and draped in the usual sterile fashion. Next a short 6 German sheath was placed in the right femoral artery using a modified Seldinger technique, after the patient received IV sedation and local anesthetic. Next a JL4 catheter was advanced over a guidewire under fluoroscopic guidance, and was engaged to the left coronary artery after which angiography was performed in multiple views. This was then removed over a wire, and a JR4 catheter was advanced in similar fashion, and was engaged to the right coronary artery after which angiography was performed in multiple views. Next a bent pigtail catheter was advanced into the left ventricle, where hemodynamic measurements were obtained, and left ventriculography was performed. After this percutaneous coronary mention was performed as described below. After this, an angiogram of the sheath showed that it was inserted in the right common femoral artery in a vessel suitable for closure. Hemostasis was obtained with Angio- Seal device with no residual bleeding. The patient was transferred [facility] in good condition without complication. Percutaneous coronary mention: The patient arrived to the [facility] on aspirin and was given 0.7 mg/kg of IV Lovenox prior to procedure. Medially after the procedure she was given a loading dose of Brilinta 180 mg on the table. A hockey-stick to guiding catheter was advanced and engaged the right coronary artery which provided good support. There was modest "damping" of the blood pressure which required some adjustment in re-engagement of the vessel. I advanced a pro-water wire to distal RCA with only modest difficulty. Next a 3.0 x 16 Synergy stent was advanced crosshair of mid disease was deployed at nominal pressures. I did not deflate the balloon and the angiogram showed the stent was slightly undersized. Therefore read dilated to 3.15 mm with an excellent angiographic result. The balloon catheter wire were then removed from the body. Coronary angiography: Left main coronary was normal developed and free of disease. Left anterior CRE is of average caliber reaches the apex. It is somewhat tortuous in the mid to distal portion and is hyperdynamic but there is no stenosis of the vessel. The LAD gives off to thin diagonal branches. The circumflex gives off a high thinner than average OM1 and a large OM 2 branch as well as a thin OM 3 branch. There is a most mild irregularities. The right coronary is a dominant vessel is of average caliber. Gives off an average caliber PDA and there is a discrete 70% mid LAD stenosis which is almost certainly her culprit unstable plaque. Left ventriculography: Left ventricle is normal size with normal LV systolic function. There are no wall motion analysis. The estimated ejection fraction 60%. Impression: 1. Normal LV systolic function with ejection fraction is will be 60% without segmental wall motion normality 2. Right dominant system 3. Single-vessel coronary disease with 70% eccentric mid RCA stenosis (culprit lesion) 4. Status post primary stenting of mid RCA disease with drug-eluting stent ( 3.0 x 16 Synergy dilated to 3.5 mm) with excellent result 5. Mild hypotension which responded to normal saline bolus during the procedure Recommendation discussion: I believe we achieved very good result cart distending this easily's culprit vessel. Her staying away from cigarettes will be very important for her prognosis. She will need to continue baby aspirin and Brilinta. She will need to avoid squatting strain lifting for the next 1 week's time. Labs on day of discharge: Labs from last 24 hours 05/14/17 05/14/17 05/14/17 04:44 04:44 04:44 WBC 7.4 RBC 3.43 L Hgb 11.1 L Hct 33.3 L MCV 97.1 MCH 32 MCHC 33.3 RDW 14.4 Plt Count 201 MPV 10.5 Neut % (Auto) 55.7 Lymph % (Auto) 36.7 [place] % (Auto) 5.9 Eos % (Auto) 0.9 Baso % (Auto) 0.4 Neut # (Auto) 4.1 Lymph # (Auto) 2.7 [place] # (Auto) 0.4 Eos # (Auto) 0.1 Baso # (Auto) 0.0 Immature Gran % 0.4 Nucleated RBC % 0.0 Immature Gran # 0.03 Nucleated RBCs # 0.00 Immature Plt Fraction 0.0 Sodium 139 138 Potassium 4.0 4.0 Chloride 109 H 108 H Carbon Dioxide 22 21 Anion Gap 12.0 13.0 BUN 4 L 4 L Creatinine 0.70 0.70 GFR Calculation 120 120 BUN/Creatinine Ratio 5.00 L 5.00 L Glucose 76 76 Calculated Osmolality 272.5 L 270.7 L Calcium 8.3 L 8.4 L Magnesium 2.1 DS: Provider Date of admission: 05/12/17 08:52 Primary care physician: . No PCP Attending physician on admission: Christiano Santos III Consults: 05/12/17 10:04 Consult to Physician [CONS] Routine Comment: chest pain/elevated troponin Consulting Provider: Cody Graham Consult to Specialist Group: Cardiology Person Notified: [email or web address] Date Notified: 05/12/17 Time Notified: 10:15 05/13/17 09:57 Consult to Cardiac Rehabilitation [CONS] Routine Reason for Cardiac Rehabilitation: Appt Out Pt Cardiac Rehab Consult Comment: nstemi; stent Discharging clinician: Christiano Santos III
[2017-05-14] MEDS ORDERED: ATORVASTATIN 40 MG TABLET PO SCH (21:00)
== END 2017-05-14 14:40 | disposition home or self-care (01) | DRG 247 ==
LOC: N.ED 06:41 → N.EDINP 06:41 → OBSVTOIN 08:52 → N.EDINP 10:00 → N.TELES 10:07
PROVIDERS: ADMIT Internal Medicine; ATTEND Internal Medicine
PROC: CLCCHCL (ICD-10-PCS; 2017-05-13 09:45)